=== PATIENT | female | born 1990 | race African-American/Black ===

== ENCOUNTER 2020-09-04 13:32 | Emergency (ER) | payer MEDICAID ==
[~2020-09-04] VITALS: Ht 172.7 cm; Wt 116.1 kg
[2020-09-04 13:39] VITALS: BP 129/56
--- NOTE | 2020-09-04 13:39 | NUR ---
Patient ambulated to bed 11
--- NOTE | 2020-09-04 13:45 | NUR ---
30/F presents to ED with c/o 9/10 throbbing left pinky pain. Patient states she was throwing out a trash bag this morning and the trashcan lid shut on her finger. Patient states pain worsens when she attempts to use or move her finger. No redness or swelling noted to finger. Patient denies taking anything for pain.
[2020-09-04] MEDS: IBUPROFEN 600 MG TAB PO ONE (14:21)
--- NOTE | 2020-09-04 14:21 | NUR ---
XRAY AT BEDSIDE
[2020-09-04] MEDS ORDERED: NAPR-54 PO (14:31)
[2020-09-04 14:58] VITALS: BP 135/75
== END 2020-09-04 14:56 | disposition home or self-care (01) ==
LOC: MED 13:32
DX: S63.617A Unspecified sprain of left little finger, initial encounter (principal); W22.8XXA Striking against or struck by other objects, initial encounter; Y93.89 Activity, other specified; Y92.89 Other specified places as the place of occurrence of the external cause; Y99.8 Other external cause status
CPT/HCPCS: 73140; 99283